=== PATIENT | male | born 1995 | race Caucasian/White ===

== ENCOUNTER 2022-05-02 23:20 | Emergency (ER) | payer OTHER ==
[~2022-05-02] VITALS: Ht 175.3 cm; Wt 89.6 kg
[2022-05-03 02:42] LABS: BASO # 0.1 10^3/uL (0.0-0.2); BASO % 1.1 % (0.0-1.0); EOS # 2.8 10^3/uL (0.0-0.5); HEMATOCRIT 45.2 % (42.0-52.0); HEMOGLOBIN 15.5 g/dl (13.5-17.5); LYMPH # 2.4 10^3/uL (1.5-5.0); LYMPH % 23.9 % (24.0-44.0); MEAN CORPUSCULAR HEMOGLOBIN 29.8 pg (27.0-33.0); MEAN CORPUSCULAR HGB CONC 34.3 g/dl (32.0-36.5); MEAN CORPUSCULAR VOLUME 86.8 fl (80.0-96.0); MONO # 0.6 10^3/uL (0.0-0.8); MONO % 5.7 % (2.0-8.0); NEUTROPHILS # 4.1 10^3/uL (1.5-8.5); NEUTROPHILS % 40.9 % (36.0-66.0); PLATELET COUNT, AUTOMATED 210 10^3/uL (150-450); RED BLOOD COUNT 5.21 10^6/uL (4.30-6.10)
[2022-05-03 03:01] LABS: LIPASE 30 U/L (12-53)
[2022-05-03] MEDS ORDERED: GI COCKTAIL 50ML BTL(HYOSCYAMINE/MAALOX/LIDOCAINE VISCOUS)(1:3:1) PO ONE (03:05)
[2022-05-03 03:44] LABS: ALBUMIN 4.2 G/DL (3.2-5.2); ALKALINE PHOSPHATASE 55 U/L (46-116); ALT/SGPT 20 U/L (7.0-40); AST/SGOT 19 U/L (<34); BILIRUBIN,DIRECT 0.1 MG/DL (<0.4); BILIRUBIN,TOTAL 0.4 MG/DL (0.3-1.2); BLOOD UREA NITROGEN 15 MG/DL (9-23); CALCIUM LEVEL 9.4 MG/DL (8.5-10.1); CARBON DIOXIDE LEVEL 30 MMOL/L (20-31); CHLORIDE LEVEL 103 MMOL/L (98-107); CREATININE FOR GFR 1.07 MG/DL (0.70-1.30); GLOMERULAR FILTRATION RATE > 60.0 (>60); GLUCOSE, FASTING 94 MG/DL (60-100); POTASSIUM SERUM 4.3 MMOL/L (3.5-5.1); SODIUM LEVEL 138 MMOL/L (136-145); TOTAL PROTEIN 6.8 G/DL (5.7-8.2)
[2022-05-03] MEDS ORDERED: OMEP40CA4 PO (04:05)
[2022-05-03] MEDS ORDERED: SUCRALFATE 1 GM TAB PO ONE (04:05)
[2022-05-03] MEDS ORDERED: CARA1TAB6 PO (04:05)
[2022-05-03] MEDS ORDERED: OMEPRAZOLE 20MG CAP PO ONE (04:05)
[2022-05-03] MEDS ORDERED: FAMOTIDINE 20 MG TAB PO ONE (04:05)
[2022-05-03] MEDS ORDERED: PEPC1TAB5 PO (04:05)
[2022-05-03 04:13] VITALS: BP 144/80
== END 2022-05-03 04:23 | disposition home or self-care (01) ==
LOC: M ED 23:20
DX: K30 Functional dyspepsia (principal); Z79.83 Long term (current) use of bisphosphonates; Z79.899 Other long term (current) drug therapy

== ENCOUNTER → 2022-10-09 | Outpatient (CLI) | payer OTHER ==
[~2022-10-09] MED LIST: CARA1TAB6 PO; OMEP40CA4 PO; PEPC1TAB5 PO
== END ==
LOC: M PLAIMG 13:29
PROVIDERS: ATTEND Physician Assistant
DX: M25.562 Pain in left knee (principal); M25.462 Effusion, left knee; R93.6 Abnormal findings on diagnostic imaging of limbs